=== PATIENT | female | born 1990 | race American Indian/Alaskan Native ===

== ENCOUNTER 2019-11-25 19:26 | Outpatient (CLI) | payer MEDICAID ==
[2019-11-25 20:26] VITALS: BP 116/61
== END 2019-11-25 21:34 | disposition home or self-care (01) ==
LOC: TRG 19:26
PROVIDERS: ATTEND Obstetrics & Gynecology
DX: O26.893 Other specified pregnancy related conditions, third trimester (principal); Z3A.33 33 weeks gestation of pregnancy
CPT/HCPCS: 59025